=== PATIENT | male | born 1965 | race Caucasian/White ===

== ENCOUNTER 2022-10-28 23:34 | Inpatient (IN) ==
[2022-10-28] MEDS ORDERED: SODIUM CHLORIDE 0.9% 1000ML 1,000 ML IV SCH (23:45)
[2022-10-28] MEDS ORDERED: ALBUT/IPRATROP 3MG/0.5MG NEB 3 ML VIAL NEB STA (23:49)
[2022-10-28] MEDS ORDERED: ACETAMINOPHEN 1,000 MG/100 ML VIAL IV STA (23:49)
[2022-10-29] MEDS ORDERED: ALBUT/IPRATROP 3MG/0.5MG NEB 3 ML VIAL NEB STA (00:01)
[2022-10-29] MEDS ORDERED: SODIUM CHLORIDE 0.9% 1000ML 1,000 ML IV ONE (00:02)
--- NOTE | 2022-10-29 00:14 | Emergency Department Note ---
History of Present Illness General Chief complaint: Shortness of Breath/Dyspnea Stated complaint: SEVERE BACK PAIN,SOB,KIDNEY PAIN Time Seen by Provider: 10/28/22 23:39 History of Present Illness This 57-year-old male with a history of hypertension presents to the ER complaining of severe shortness of breath with right flank pain and right scapular pain since last night. Patient states his breathing got much worse and he can barely ambulate. Patient denies prior history of breathing issues. Patient denies chest pain, abdominal pain, vomiting, diarrhea. He has had a cough and a low-grade fever. He had a colonoscopy on Thursday. No complications per patient. Home Medications Medication Instructions Recorded Confirmed Type acetaminophen 500 mg tablet 1,000 mg PO DIRECTED PRN Pain 10/29/22 10/29/22 History (Tylenol Extra Strength) hydrochlorothiazide 12.5 mg tablet 12.5 mg PO DAILY 10/29/22 10/29/22 History losartan 100 mg tablet 100 mg PO DAILY 10/29/22 10/29/22 History Allergies Allergy/AdvReac Type Severity Reaction Status Date / Time No Known Allergies Allergy Verified 10/29/22 00:19 Past Med/Surg History Social History Smoking Status: Never smoker Feels Safe at Home: Yes Review of Systems A total of 10 systems reviewed and were otherwise negative Physical Exam Vital Signs Vital Signs - 24 hr 10/28/22 23:39 10/29/22 00:08 10/29/22 00:12 Temperature 37.9 C H Temperature Source Temporal Artery Scan Pulse Rate 107 H 107 H Pulse Rate [Apical] Respiratory Rate 30 H 26 H Respiratory Effort / Characteristics Respiratory Depth Respiratory Pattern Blood Pressure 166/89 H Blood Pressure [Right Arm] Blood Pressure Mean 114 Blood Pressure Mean [Right Arm] Blood Pressure Position [Right Arm] Pulse Oximetry 95 94 94 Oxygen Delivery Method Room Air Room Air Room Air Sepsis Recent Fever Within 48 Hours No Sepsis New/Unexplained Change in Mental Status No Sepsis Action Taken by Nursing No Action Required 10/29/22 00:13 10/29/22 00:14 10/29/22 01:06 Temperature Temperature Source Pulse Rate Pulse Rate [Apical] 107 H 100 H Respiratory Rate 26 H 22 Respiratory Effort / Characteristics Spontaneous Labored Short of Breath Non-Labored Spontaneous Non-Labored Spontaneous Respiratory Depth Deep Normal Normal Respiratory Pattern Tachypnea Blood Pressure Blood Pressure [Right Arm] 149/98 H 152/79 H Blood Pressure Mean Blood Pressure Mean [Right Arm] 115 103 Blood Pressure Position [Right Arm] Sitting Sitting Pulse Oximetry 94 94 Oxygen Delivery Method Room Air Room Air Room Air Sepsis Recent Fever Within 48 Hours Sepsis New/Unexplained Change in Mental Status Sepsis Action Taken by Nursing VITALS: Vitals are noted on the nurse's note and reviewed by myself. Vital signs tachypneic tachycardic febrile. GENERAL: White male working to breathe unable to speak in full sentences, in acute distress, well-developed well-nourished. SKIN: The skin was without rashes, erythema, edema, or bruising. There is no tenting of the skin. Capillary reflex less than 2 seconds. HEAD: Normocephalic atraumatic. EARS: External auditory canals clear, tympanic membranes pearly hannah without erythema or effusion bilaterally. EYES: Pupils equal round and reactive to light and accommodation. Conjunctivae without injection, sclerae without icterus. Extraocular movements intact. NOSE: Patent, turbinates without inflammation or discharge. No sinus tenderness. MOUTH: Mucous membranes moist. Pharynx without erythema or exudate. Uvula midline. Airway patent. Tongue does not deviate. NECK: Supple without nuchal rigidity. No lymphadenopathy. No thyromegaly. Cervical spine is nontender. No JVD. HEART: Regular rate and rhythm LUNGS: Mild diffuse and expiratory wheezes,no retractions or accessory muscle use. ABDOMEN: Positive bowel sounds x 4. Normal tympanic percussion. Soft, nontender, without masses or organomegaly. Santana sign negative. No guarding or rebound tenderness. No CVA tenderness MUSCULOSKELETAL: No muscle atrophy, erythema, or edema noted. NEURO: Patient was alert and oriented to person place and time. Normal sensation to light and sharp touch. No focal neurological deficits. Course Administered Medications Discontinued Medications Albuterol (Albut/Ipratrop 3mg/0.5mg Neb 3 Ml Vial) 3 ml NEB NOW STA; Protocol Stop: 10/28/22 23:50 Last Admin: 10/29/22 00:01 Dose: 3 ml Documented By: JONG Albuterol (Albut/Ipratrop 3mg/0.5mg Neb 3 Ml Vial) 3 ml NEB NOW STA; Protocol Stop: 10/29/22 00:02 Last Admin: 10/29/22 01:07 Dose: Not Given Documented By: STEPHON Acetaminophen (Ofirmev) 1,000 mg in 100 mls @ 400 mls/hr IV NOW STA Stop: 10/29/22 00:03 Last Infusion: 10/29/22 01:11 Dose: 0 mls/hr Documented By: Admin: 10/29/22 00:01 Dose: 400 mls/hr Documented By: JONG Sodium Chloride (Nss 1000ml) 1,000 mls @ 999 mls/hr IV .Q1H1M STEVEN Stop: 10/29/22 00:45 Last Infusion: 10/29/22 01:41 Dose: 0 mls/hr Documented By: Admin: 10/29/22 00:01 Dose: 999 mls/hr Documented By: JONG Sodium Chloride (Nss 1000ml) 1,000 mls @ 999 mls/hr IV .Q1H1M ONE Stop: 10/29/22 01:02 Last Admin: 10/29/22 01:07 Dose: 999 mls/hr Documented By: STEPHON Piperacillin Sod/Tazobactam Sod (Zosyn) 4.5 gm in 120 mls @ 240 mls/hr IV NOW ONE Stop: 10/29/22 01:39 Last Admin: 10/29/22 01:17 Dose: 240 mls/hr Documented By: STEPHON Ioversol (Optiray 320 125ml) 125 ml IV ONCE ONE Stop: 10/29/22 01:01 Last Admin: 10/29/22 01:00 Dose: 115 ml Documented By: ULICES Critical Care Time Critical Care Time: Yes Total Critical Care Time: 35 I have personally spent 35 minutes of critical care time in the direct management of this patient. This includes bedside care, interpretation of diagnostic studies, and testing, discussion with consultants, patient, and fam lloyd members, and other required patient management activities. This 35 minutes is in excess of all separately billable procedures. Medical Decision Making Medical Records Attestation: I reviewed the patient's medical records. Home Medications Current Medication List: was personally reviewed by me Laboratory Data Attestation: I reviewed the patient's lab results. 10/28/22 23:57 10/28/22 23:57 Lab Results 06/27/23 06/27/23 06/27/23 Range/Units 23:57 23:57 23:57 WBC 11.57 H (4.8-10.8) K/ul RBC 4.89 (4.70-6.10) M/uL Hgb 14.8 (14.0-18.0) g/dl POC Hgb (14.0-18.0) g/dl Hct 42.9 (42.0-52.0) % POC Hct (42-52) % MCV 87.7 (80.0-100.0) fL MCH 30.3 (25.0-34.0) pg MCHC 34.5 (32.0-36.0) g/dL RDW Std Deviation 40.0 (36.4-46.3) fL RDW Coeff of Jhon 12.5 (11.5-14.5) % Plt Count 204 (130-400) K/uL MPV 9.7 (9.4-12.4) fL Immature Gran % (Auto) 0.4 % Neut % (Auto) 75.8 % Lymph % (Auto) 13.7 % Louisa % (Auto) 8.0 % Eos % (Auto) 1.6 % Baso % (Auto) 0.5 % Neut # (Auto) 8.77 H (1.40-6.50) K/uL Lymph # (Auto) 1.59 (1.2-3.4) K/uL Louisa # (Auto) 0.92 H (0.11-0.59) K/uL Eos # (Auto) 0.18 (0-0.50) K/uL Baso # (Auto) 0.06 (0-0.2) K/uL Immature Gran # (Auto) 0.05 (0.01-0.20) K/uL VBG pH (7.36-7.41) VBG pCO2 (38-50) mmHg VBG pO2 mmHg VBG HCO3 mmol/L VBG O2 Saturation % VBG Base Excess mEq/L POC Sodium (135-144) mmol/L Sodium 134 L (136-145) mmol/L POC Potassium (3.3-5.0) mmol/L Potassium 4.2 (3.5-5.1) mmol/L POC Chloride (101-112) mmol/L Chloride 102 (98-107) mmol/L Carbon Dioxide 24 (21-32) mmol/L POC Total CO2 (24-31) mmol/L Anion Gap 8 (3-11) POC Anion Gap (16-25) mmol/L POC BUN (7-18) mg/dl BUN 15 (6-23) mg/dl Creatinine 1.06 (0.6-1.4) mg/dl POC Creatinine (0.6-1.3) mg/dl Est Cr Clr Drug Dosing 103.8 ml/min Est GFR ( Amer) 89.9 ml/min Est GFR (Non-Af Amer) 77.5 ml/min BUN/Creatinine Ratio 14.2 (10-20) Glucose 124 H (70-99(Fasting)) mg/dl POC Glucose (other) (70-99) mg/dl Lactate (0.4-2.0) mmol/L Calcium 9.5 (8.6-10.3) mg/dl POC Ioniz Calcium Joi (1.12-1.32) mmol/l Magnesium 2.0 (1.7-2.4) mg/dl Total Bilirubin 0.5 (0.2-1.0) mg/dl Direct Bilirubin 0.1 (0-0.2) mg/dl AST 15 (13-39) U/L ALT 16 (7-52) U/L Alkaline Phosphatase 93 (34-104) U/L Troponin I High Sens 4.8 (0-20) pg/ml Total Protein 8.6 H (6.0-8.3) gm/dl Albumin 4.5 (3.4-5.0) gm/dl Procalcitonin 0.47 (0-0.5) ng/ml Adenovirus (PCR) (NotDetected) B. pertussis DNA (PCR) (NotDetected) B.parapertussis DNA PCR (NotDetected) C. pneumoniae DNA (PCR) (NotDetected) Coronavirus OC43 (PCR) (NotDetected) Coronavirus HKU1 (PCR) (NotDetected) Coronavirus 229E (PCR) (NotDetected) SARS-CoV-2 (PCR) (NotDetected) Coronavirus NL63 (PCR) (NotDetected) Human Metapneumovir PCR (NotDetected) Influenza Type A (PCR) (NotDetected) Influenza Type B (PCR) (NotDetected) M. pneumoniae (PCR) (NotDetected) Parainfluenza 1 (PCR) (NotDetected) Parainfluenza 2 (PCR) (NotDetected) Parainfluenza 3 (PCR) (NotDetected) Parainfluenza 4 (PCR) (NotDetected) RSV (PCR) (NotDetected) Entero/Rhino (PCR) (NotDetected) 10/29/22 10/29/22 10/29/22 Range/Units 00:03 00:09 01:05 WBC (4.8-10.8) K/ul RBC (4.70-6.10) M/uL Hgb (14.0-18.0) g/dl POC Hgb 15.6 (14.0-18.0) g/dl Hct (42.0-52.0) % POC Hct 46 (42-52) % MCV (80.0-100.0) fL MCH (25.0-34.0) pg MCHC (32.0-36.0) g/dL RDW Std Deviation (36.4-46.3) fL RDW Coeff of John (11.5-14.5) % Plt Count (130-400) K/uL MPV (9.4-12.4) fL Immature Gran % (Auto) % Neut % (Auto) % Lymph % (Auto) % Louisa % (Auto) % Eos % (Auto) % Baso % (Auto) % Neut # (Auto) (1.40-6.50) K/uL Lymph # (Auto) (1.2-3.4) K/uL Louisa # (Auto) (0.11-0.59) K/uL Eos # (Auto) (0-0.50) K/uL Baso # (Auto) (0-0.2) K/uL Immature Gran # (Auto) (0.01-0.20) K/uL VBG pH (7.36-7.41) VBG pCO2 (38-50) mmHg VBG pO2 mmHg VBG HCO3 mmol/L VBG O2 Saturation % VBG Base Excess mEq/L POC Sodium 137 (135-144) mmol/L Sodium (136-145) mmol/L POC Potassium 4.2 (3.3-5.0) mmol/L Potassium (3.5-5.1) mmol/L POC Chloride 102 (101-112) mmol/L Chloride (98-107) mmol/L Carbon Dioxide (21-32) mmol/L POC Total CO2 24 (24-31) mmol/L Anion Gap (3-11) POC Anion Gap 17.0 (16-25) mmol/L POC BUN 13 (7-18) mg/dl BUN (6-23) mg/dl Creatinine (0.6-1.4) mg/dl POC Creatinine 1.0 (0.6-1.3) mg/dl Est Cr Clr Drug Dosing ml/min Est GFR ( Amer) ml/min Est GFR (Non-Af Amer) ml/min BUN/Creatinine Ratio (10-20) Glucose (70-99(Fasting)) mg/dl POC Glucose (other) 125 H (70-99) mg/dl Lactate 1.1 (0.4-2.0) mmol/L Calcium (8.6-10.3) mg/dl POC Ioniz Calcium Joi 1.13 (1.12-1.32) mmol/l Magnesium (1.7-2.4) mg/dl Total Bilirubin (0.2-1.0) mg/dl Direct Bilirubin (0-0.2) mg/dl AST (13-39) U/L ALT (7-52) U/L Alkaline Phosphatase (34-104) U/L Troponin I High Sens (0-20) pg/ml Total Protein (6.0-8.3) gm/dl Albumin (3.4-5.0) gm/dl Procalcitonin (0-0.5) ng/ml Adenovirus (PCR) Not Detected (NotDetected) B. pertussis DNA (PCR) Not Detected (NotDetected) B.parapertussis DNA PCR Not Detected (NotDetected) C. pneumoniae DNA (PCR) Not Detected (NotDetected) Coronavirus OC43 (PCR) Not Detected (NotDetected) Coronavirus HKU1 (PCR) Not Detected (NotDetected) Coronavirus 229E (PCR) Not Detected (NotDetected) SARS-CoV-2 (PCR) Not Detected (NotDetected) Coronavirus NL63 (PCR) Not Detected (NotDetected) Human Metapneumovir PCR Not Detected (NotDetected) Influenza Type A (PCR) Not Detected (NotDetected) Influenza Type B (PCR) Not Detected (NotDetected) M. pneumoniae (PCR) Not Detected (NotDetected) Parainfluenza 1 (PCR) Not Detected (NotDetected) Parainfluenza 2 (PCR) Not Detected (NotDetected) Parainfluenza 3 (PCR) Not Detected (NotDetected) Parainfluenza 4 (PCR) Not Detected (NotDetected) RSV (PCR) Not Detected (NotDetected) Entero/Rhino (PCR) Not Detected (NotDetected) 10/29/22 Range/Units 01:05 WBC (4.8-10.8) K/ul RBC (4.70-6.10) M/uL Hgb (14.0-18.0) g/dl POC Hgb (14.0-18.0) g/dl Hct (42.0-52.0) % POC Hct (42-52) % MCV (80.0-100.0) fL MCH (25.0-34.0) pg MCHC (32.0-36.0) g/dL RDW Std Deviation (36.4-46.3) fL RDW Coeff of John (11.5-14.5) % Plt Count (130-400) K/uL MPV (9.4-12.4) fL Immature Gran % (Auto) % Neut % (Auto) % Lymph % (Auto) % Louisa % (Auto) % Eos % (Auto) % Baso % (Auto) % Neut # (Auto) (1.40-6.50) K/uL Lymph # (Auto) (1.2-3.4) K/uL Louisa # (Auto) (0.11-0.59) K/uL Eos # (Auto) (0-0.50) K/uL Baso # (Auto) (0-0.2) K/uL Immature Gran # (Auto) (0.01-0.20) K/uL VBG pH 7.45 H (7.36-7.41) VBG pCO2 39 (38-50) mmHg VBG pO2 48 mmHg VBG HCO3 27 mmol/L VBG O2 Saturation 74.1 % VBG Base Excess 3.0 mEq/L POC Sodium (135-144) mmol/L Sodium (136-145) mmol/L POC Potassium (3.3-5.0) mmol/L Potassium (3.5-5.1) mmol/L POC Chloride (101-112) mmol/L Chloride (98-107) mmol/L Carbon Dioxide (21-32) mmol/L POC Total CO2 (24-31) mmol/L Anion Gap (3-11) POC Anion Gap (16-25) mmol/L POC BUN (7-18) mg/dl BUN (6-23) mg/dl Creatinine (0.6-1.4) mg/dl POC Creatinine (0.6-1.3) mg/dl Est Cr Clr Drug Dosing ml/min Est GFR ( Amer) ml/min Est GFR (Non-Af Amer) ml/min BUN/Creatinine Ratio (10-20) Glucose (70-99(Fasting)) mg/dl POC Glucose (other) (70-99) mg/dl Lactate (0.4-2.0) mmol/L Calcium (8.6-10.3) mg/dl POC Ioniz Calcium Joi (1.12-1.32) mmol/l Magnesium (1.7-2.4) mg/dl Total Bilirubin (0.2-1.0) mg/dl Direct Bilirubin (0-0.2) mg/dl AST (13-39) U/L ALT (7-52) U/L Alkaline Phosphatase (34-104) U/L Troponin I High Sens (0-20) pg/ml Total Protein (6.0-8.3) gm/dl Albumin (3.4-5.0) gm/dl Procalcitonin (0-0.5) ng/ml Adenovirus (PCR) (NotDetected) B. pertussis DNA (PCR) (NotDetected) B.parapertussis DNA PCR (NotDetected) C. pneumoniae DNA (PCR) (NotDetected) Coronavirus OC43 (PCR) (NotDetected) Coronavirus HKU1 (PCR) (NotDetected) Coronavirus 229E (PCR) (NotDetected) SARS-CoV-2 (PCR) (NotDetected) Coronavirus NL63 (PCR) (NotDetected) Human Metapneumovir PCR (NotDetected) Influenza Type A (PCR) (NotDetected) Influenza Type B (PCR) (NotDetected) M. pneumoniae (PCR) (NotDetected) Parainfluenza 1 (PCR) (NotDetected) Parainfluenza 2 (PCR) (NotDetected) Parainfluenza 3 (PCR) (NotDetected) Parainfluenza 4 (PCR) (NotDetected) RSV (PCR) (NotDetected) Entero/Rhino (PCR) (NotDetected) Imaging Data Attestation: I personally reviewed and interpreted this imaging study as follows: Radiologist's Impression: Abdomen/Pelvis CT 10/29/22 00:01 Exam(s): CT ABDOMEN + PELVIS With Contrast IV Amt: 115 ML OPTIRAY 320 EXAM: CT Abdomen and Pelvis With Intravenous Contrast CLINICAL HISTORY: Reason for exam: right flank pain. TECHNIQUE: Axial computed tomography images of the abdomen and pelvis with intravenous contrast. CTDI is 28.14 mGy and DLP is 873.63 mGy-cm. Automated exposure control was utilized for the study. A dose lowering technique was utilized adhering to the principles of ALARA. CONTRAST: Patient received 115 ML OPTIRAY 320 of IV contrast COMPARISON: No relevant prior studies available. FINDINGS: Lung bases: Bronchitis with pneumonitis and small consolidation at the right lung base with tiny pleural effusion. ABDOMEN: Liver: Hepatic steatosis. No mass. Gallbladder and bile ducts: Unremarkable. No calcified stones. No ductal dilation. Pancreas: Unremarkable. No mass. No ductal dilation. Spleen: Unremarkable. No splenomegaly. Adrenals: Unremarkable. No mass. Kidneys and ureters: Left renal cyst. No solid mass. No hydronephrosis. Stomach and bowel: Unremarkable. No obstruction. No mucosal thickening. PELVIS: Appendix: No findings to suggest acute appendicitis. Bladder: Unremarkable. No mass. Reproductive: Unremarkable as visualized. ABDOMEN and PELVIS: Intraperitoneal space: Unremarkable. No free air. No significant fluid collection. Bones/joints: Moderate disc degeneration at L1-2, L2-3, L4-5 and L5-S1. No acute fracture. No dislocation. Soft tissues: Unremarkable. Vasculature: Unremarkable. No abdominal aortic aneurysm. Lymph nodes: Unremarkable. No enlarged lymph nodes. IMPRESSION: No evidence of acute intra-abdominal pathology. Bronchitis with pneumonitis and small consolidation at the right lung base with tiny pleural effusion. Electronically signed by: Shena Logan MD 10/29/22 01:33 AM Chest CTA 10/29/22 00:01 CR Exam(s): CTA CHEST IV Amt: 115 ML OPTIRAY 320 EXAM: CT Angiography Chest With Intravenous Contrast CLINICAL HISTORY: Reason for exam: PE. TECHNIQUE: Axial computed tomographic angiography images of the chest with intravenous contrast. CTDI is 27.54 mGy and DLP is 1591.62 mGy-cm. Automated exposure control was utilized for the study. A dose lowering technique was utilized adhering to the principles of ALARA. MIP reconstructed images were created and reviewed. COMPARISON: No relevant prior studies available. FINDINGS: Pulmonary arteries: There is an obstructive pulmonary embolus in the right lower lobe segmental pulmonary artery. Findings concerning for a obstructive pulmonary mass in the left lower lobe subsegmental pulmonary artery. Aorta: No acute findings. No thoracic aortic aneurysm. Lungs: Bronchitis with pneumonitis and small consolidation in the right middle lobe and right lower lobe. No mass. Pleural space: Tiny right pleural effusion. No pneumothorax. Heart: Mild calcified atherosclerotic disease of the coronary arteries.. No cardiomegaly. No significant pericardial effusion. No evidence of RV dysfunction. Bones/joints: No acute fracture. No dislocation. Soft tissues: Hepatic steatosis. Lymph nodes: Prominent mediastinal and hilar lymph nodes. IMPRESSION: Obstructive pulmonary embolus in the right lower lobe segmental pulmonary artery with possible obstructive embolus in the left lower lobe subsegmental pulmonary artery. No evidence of right heart strain. Findings concerning for bronchitis with small consolidations in the right middle lobe and right lower lobe with tiny right pleural effusion. Prominent mediastinal and hilar lymph nodes. Communications: Call Doctor Above results Electronically signed by: Shena Logan MD 10/29/22 01:37 AM MDM Narrative Prior records/ancillary studies reviewed. Triage Nursing notes reviewed. Additional history obtained from the family. The patient's history was concerning for respiratory difficulties. Differential diagnosis: Etiologies such as infections, reactive airway disease, pneumonia, pneumothorax, COPD, CHF, cardiac ischemia, pulmonary embolism, musculoskeletal, gastrointestinal, as well as others were entertained. Physical examination: As above. ER treatment provided: An order was placed for continuous cardiac monitoring. The monitor shows a rate of 60-1 50 with a sinus rhythm per my interpretation. Limited Point of Care FAST Ultrasound performed by me: Indication: Rule out pneumothorax Findings: Limited cardiac ultrasonography via subxiphoid and parasternal long view showed cardiac wall motion activity, no pericardial fluid, no tamponade. Limited chest ultrasound revealed bilateral lung sliding. Limited abdominal ultrasound revealed no free fluid within Morrisons pouch, splenorenal space, or the pouch of Dwayne. Impression: Negative FAST exam. IV was immediately placed, i-STAT was ordered, patient was given a nebulizer fluids and Tylenol Patient was given Zosyn for pneumonia seen on imaging. He was started on heparin without bolus after discussion with the admitting team. On reassessment the patient felt better. Diagnostic interpretation by me: The electrocardiogram was ordered for SOB. ECG: Normal sinus, normal intervals, no acute ST-T wave changes. Impression s inus tachycardia independently interpreted by myself I think arrhythmia is unlikely. EKG shows normal sinus rhythm with no interval abnormalities such as QT prolongation or WPW. There are no findings to suggest Brugada syndrome. Cardiac monitoring in the emergency department reveals no tachycardic or bradycardic dysrhythmia. Hypertrophic cardiomyopathy was considered but there are no clear historical elements pointing toward this. EKG is not suggestive. The QRS voltage is not extremely large and there are no suggestive Q waves. The labs Independently Interpreted by myself revealed mild leukocytosis, negative lactic. Negative BioFire Blood cultures pending Negative troponin Imaging studies: Chest x-ray with possible right lower lobe pneumonia per my independent interpretation CTA and CT of the abdomen pelvis concerning for pneumonia and PEs per my independent interpretation. Consultation: A consultation was placed with the hospitalist. The case was discussed and diagnostics were reviewed. The patient was evaluated in the ER for further treatment. This appears to be consistent with pneumonia with PEs.. Labs and diagnostics were independently interpreted by myself. Patient started antibiotics. He was started on heparin. Discussion with the hospitalist over the heparin dosing and recommends heparin without bolus. Patient was reassessed multiple times. He did improve. He is agreeable treatment plan of admission. By the evaluation outlined above emergent etiologies such as CHF, cardiac ischemia, reactive airway disease, pneumothorax, musculoskeletal, as well as others were deemed relatively unlikely. The pt informed about the findings as listed above. All questions were answered and pleased with the treatment. The chart was completed utilizing Dragon Speech voice recognition software. Grammatical errors, random word insertions, pronoun errors, and incomplete sentences are an occassional consequence of this system due to software limi tations, ambient noise, and hardware issues. Any formal questions or concerns about the content, text, or information contained within the body of this dictation should be directly addressed to the physician physician assistant psychiatry for clarification. Impression & Plan Pulmonary embolism, CAP (community acquired pneumonia) Discharge Plan Visit Data Chief Complaint: Shortness of Breath/Dyspnea Stated Complaint: SEVERE BACK PAIN,SOB,KIDNEY PAIN ED Provider: Luis So ED Midlevel Provider: Priyanka Escamilla Discharge Problem: Pulmonary embolism, CAP (community acquired pneumonia) Patient Disposition: Admitted As Inpatient Condition: Fair Forms Stand Alone Forms: [facility] Prescriptions Prescriptions: No Action acetaminophen [Tylenol Extra Strength] 500 mg Tablet 1,000 mg PO DIRECTED PRN (Reason: Pain) losartan 100 mg Tablet 100 mg PO DAILY hydrochlorothiazide 12.5 mg Tablet 12.5 mg PO DAILY Referrals Referrals: PCP,NO [Physician] - Pulmonary embolism Qualifiers: Pulmonary embolism type: unspecified Chronicity: acute Acute cor pulmonale presence: without acute cor pulmonale Qualified Code(s): I26.99 - Other pulmonary embolism without acute cor pulmonale
[2022-10-29 00:16] LABS: iSTAT Hemoglobin 15.6 g/dl (14.0-18.0); iSTAT Ionized Calcium 1.13 mmol/l (1.12-1.32); iSTAT Potassium 4.2 mmol/L (3.3-5.0)
[2022-10-29 00:18] LABS: Basophils # (auto) 0.06 K/uL (0-0.2); Basophils % (auto) 0.5 %; Eosinophils # (auto) 0.18 K/uL (0-0.50); Eosinophils % (auto) 1.6 %; Hematocrit (blood only) 42.9 % (42.0-52.0); Hemoglobin 14.8 g/dl (14.0-18.0); Immature Granulocytes # (auto) 0.05 K/uL (0.01-0.20); Immature Granulocytes % (auto) 0.4 %; Lymphocytes # (auto) 1.59 K/uL (1.2-3.4); Lymphocytes % (auto) 13.7 %; Mean Corpuscular Hemoglobin 30.3 pg (25.0-34.0); Mean Corpuscular Hgb Conc 34.5 g/dL (32.0-36.0); Mean Corpuscular Volume 87.7 fL (80.0-100.0); Mean Platelet Volume 9.7 fL (9.4-12.4); Monocytes # (auto) 0.92 K/uL (0.11-0.59); Neutrophils # (auto) 8.77 K/uL (1.40-6.50); Neutrophils % (auto) 75.8 %; Platelet Count 204 K/uL (130-400); RDW Coefficient of Variation 12.5 % (11.5-14.5); Red Blood Count 4.89 M/uL (4.70-6.10); White Blood Count 11.57 K/ul (4.8-10.8)
[2022-10-29 00:34] LABS: Albumin Level 4.5 gm/dl (3.4-5.0); BUN Creatinine Ratio 14.2 (10-20); Bilirubin Direct 0.1 mg/dl (0-0.2); Bilirubin,Total 0.5 mg/dl (0.2-1.0); Calcium 9.5 mg/dl (8.6-10.3); Creatinine Clr Calc Pharmacy 103.8 ml/min; Est GFR (African American) 89.9 ml/min; Est GFR (Non-African American) 77.5 ml/min; Potassium 4.2 mmol/L (3.5-5.1); Total Protein 8.6 gm/dl (6.0-8.3)
[2022-10-29 00:38] LABS: Troponin I High Sensitivity 4.8 pg/ml (0-20)
[2022-10-29] MEDS ORDERED: OPTIRAY 320 125ml IV ONE (01:00)
[2022-10-29 01:10] LABS: HCO3 VBG 27 mmol/L; Oxygen Saturation VBG 74.1 %; PCO2 VBG 39 mmHg (38-50); PO2 VBG 48 mmHg; pH VBG 7.45 (7.36-7.41)
[2022-10-29] MEDS ORDERED: PIPERACILLIN/TAZOBACTAM 4.5 GM/120 ML BAG IV ONE (01:10)
[2022-10-29 01:18] LABS: Adenovirus PCR Not Detected (NotDetected); Bordetella parapertussis PCR Not Detected (NotDetected); Bordetella pertussis PCR Not Detected (NotDetected); Chlamydia pneumoniae PCR Not Detected (NotDetected); Coronavirus 229E PCR Not Detected (NotDetected); Coronavirus CoV-2 (COVID19)PCR Not Detected (NotDetected); Coronavirus HKU1 PCR Not Detected (NotDetected); Coronavirus NL63 PCR Not Detected (NotDetected); Coronavirus OC43PCR Not Detected (NotDetected); Human Metapneumovirus PCR Not Detected (NotDetected); Influenza A PCR Not Detected (NotDetected); Influenza B PCR Not Detected (NotDetected); Mycoplasma pneumoniae PCR Not Detected (NotDetected); Parainfluenza Virus 1 PCR Not Detected (NotDetected); Parainfluenza Virus 2 PCR Not Detected (NotDetected); Parainfluenza Virus 3 PCR Not Detected (NotDetected); Parainfluenza Virus 4 PCR Not Detected (NotDetected); Respiratory Syncytial VirusPCR Not Detected (NotDetected); Rhinovirus/Enterovirus PCR Not Detected (NotDetected)
[2022-10-29] MEDS ORDERED: LORazepam 2 MG/1 ML VIAL IV STA (01:19)
--- NOTE | 2022-10-29 01:34 | CT Scan Report ---
Exam(s): CT ABDOMEN + PELVIS With Contrast IV Amt: 115 ML OPTIRAY 320 EXAM: CT Abdomen and Pelvis With Intravenous Contrast CLINICAL HISTORY: Reason for exam: right flank pain. TECHNIQUE: Axial computed tomography images of the abdomen and pelvis with intravenous contrast. CTDI is 28.14 mGy and DLP is 873.63 mGy-cm. Automated exposure control was utilized for the study. A dose lowering technique was utilized adhering to the principles of ALARA. CONTRAST: Patient received 115 ML OPTIRAY 320 of IV contrast COMPARISON: No relevant prior studies available. FINDINGS: Lung bases: Bronchitis with pneumonitis and small consolidation at the right lung base with tiny pleural effusion. ABDOMEN: Liver: Hepatic steatosis. No mass. Gallbladder and bile ducts: Unremarkable. No calcified stones. No ductal dilation. Pancreas: Unremarkable. No mass. No ductal dilation. Spleen: Unremarkable. No splenomegaly. Adrenals: Unremarkable. No mass. Kidneys and ureters: Left renal cyst. No solid mass. No hydronephrosis. Stomach and bowel: Unremarkable. No obstruction. No mucosal thickening. PELVIS: Appendix: No findings to suggest acute appendicitis. Bladder: Unremarkable. No mass. Reproductive: Unremarkable as visualized. ABDOMEN and PELVIS: Intraperitoneal space: Unremarkable. No free air. No significant fluid collection. Bones/joints: Moderate disc degeneration at L1-2, L2-3, L4-5 and L5-S1. No acute fracture. No dislocation. Soft tissues: Unremarkable. Vasculature: Unremarkable. No abdominal aortic aneurysm. Lymph nodes: Unremarkable. No enlarged lymph nodes. IMPRESSION: No evidence of acute intra-abdominal pathology. Bronchitis with pneumonitis and small consolidation at the right lung base with tiny pleural effusion. Electronically signed by: Shena Logan MD 10/29/22 01:33 AM
--- NOTE | 2022-10-29 01:38 | CT Scan Report ---
Exam(s): CTA CHEST IV Amt: 115 ML OPTIRAY 320 EXAM: CT Angiography Chest With Intravenous Contrast CLINICAL HISTORY: Reason for exam: PE. TECHNIQUE: Axial computed tomographic angiography images of the chest with intravenous contrast. CTDI is 27.54 mGy and DLP is 1591.62 mGy-cm. Automated exposure control was utilized for the study. A dose lowering technique was utilized adhering to the principles of ALARA. MIP reconstructed images were created and reviewed. COMPARISON: No relevant prior studies available. FINDINGS: Pulmonary arteries: There is an obstructive pulmonary embolus in the right lower lobe segmental pulmonary artery. Findings concerning for a obstructive pulmonary mass in the left lower lobe subsegmental pulmonary artery. Aorta: No acute findings. No thoracic aortic aneurysm. Lungs: Bronchitis with pneumonitis and small consolidation in the right middle lobe and right lower lobe. No mass. Pleural space: Tiny right pleural effusion. No pneumothorax. Heart: Mild calcified atherosclerotic disease of the coronary arteries.. No cardiomegaly. No significant pericardial effusion. No evidence of RV dysfunction. Bones/joints: No acute fracture. No dislocation. Soft tissues: Hepatic steatosis. Lymph nodes: Prominent mediastinal and hilar lymph nodes. IMPRESSION: Obstructive pulmonary embolus in the right lower lobe segmental pulmonary artery with possible obstructive embolus in the left lower lobe subsegmental pulmonary artery. No evidence of right heart strain. Findings concerning for bronchitis with small consolidations in the right middle lobe and right lower lobe with tiny right pleural effusion. Prominent mediastinal and hilar lymph nodes. Communications: Call Doctor Above results Electronically signed by: Shena Logan MD 10/29/22 01:37 AM
[2022-10-29] MEDS ORDERED: Heparin IV Adult Wt-Based Standard *NO* Bolus Protocol IV ONE (01:42)
[2022-10-29 02:05] LABS: Partial Thromboplastin Time 27.8 Seconds (21.0-31.0); Prothrombin Time 10.8 Seconds (9.0-12.0)
[2022-10-29 02:29] LABS: Appearance Urine Clear (Clear); Bilirubin Urine Negative (Negative); Blood Urine Negative (Negative); Color Urine Yellow; Glucose Urine UA Negative (Negative); Ketones Urine Negative (Negative); Leukocyte Esterase Urine Negative (Negative); Nitrite Urine Negative (Negative); Protein Urine Negative (Negative); Specific Gravity Urine 1.037 (1.000-1.030); Urobilinogen Urine Negative (Negative); pH Urine 6.5 (4.5-7.5)
[2022-10-29] MEDS: HEPARIN SODIUM/DEXTROSE 25,000 UNITS/500 ML BAG IV SCH ×2 (02:46→17:00)
[2022-10-29] MEDS ORDERED: DOXYCYCLINE HYCLATE 100 MG in DEXTROSE 5% 100 ML IV STA (03:56)
--- NOTE | 2022-10-29 03:57 | History & Physical Report ---
Date of Service October 29, 2022 Assessment & Plan (1) Pulmonary embolism: Plan: Unprovoked initial event Possible hypercoagulable state Patient with multiple family members with history of blood clots (1 brother with factor V Leiden mutation as per her account) Rule out LE clot as source Sepsis secondary to community-acquired pneumonia, patient presenting with atypical symptoms given absence of prominent cough symptoms hypertension, elevated secondary to discomfort and illness prediabetes, hemoglobin A1c of 6.2 last June 2022 Medical telemetry IV heparin Hypercoagulable work-up as ordered by ER provider prior to initiation of IV heparin LE venous Dopplers rule out DVT Defer discussion regarding home anticoagulation between patient and AM provider. CS, Doxycycline Clonidine 1 dose now for uncontrolled BP Analgesia, Lidoderm patch trial for pleurisy DVT prophylaxis. IV heparin Full code Text document was generated using [employer] ([employer] voice recognition software. It may contain grammatical or spelling errors. Kindly contact undersigned for clarification of any documentation item in question. History of Present Illness Chief Complaint: Right-sided back pain, shortness of breath Primary Care Provider: Darlene Barriga MD History obtained from patient and records. Medical history significant for hypertension, chronic back pain, prediabetes. Patient underwent outpatient follow-up colonoscopy 4 days ago. Unremarkable postprocedure course. Yesterday, patient noted achy right flank pain with shortness of breath symptoms. No cough, no abdominal pain. Fever and chills. Increased weakness. Zosyn administered at the ER for sepsis. IV heparin initiated for pulmonary embolism on CT imaging. No prior history of blood clots. Multiple family members with blood clot history. 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 Allergies Allergy/AdvReac Type Severity Reaction Status Date / Time No Known Allergies Allergy Verified 10/29/22 00:19 Home Medications Medication Instructions Recorded Confirmed Type acetaminophen 500 mg tablet 1,000 mg PO DIRECTED PRN Pain 10/29/22 10/29/22 History (Tylenol Extra Strength) hydrochlorothiazide 12.5 mg tablet 12.5 mg PO DAILY 10/29/22 10/29/22 History losartan 100 mg tablet 100 mg PO DAILY 10/29/22 10/29/22 History Past Med/Surg History Social History Smoking Status: Never smoker Hx Alcohol Use: No Hx Substance Use: No 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: No Beliefs That Will Affect Care: None Current Living Situation: Spouse Other Information That Helps Us Care for You: No Feels Safe at Home: Yes Safety Concerns: Feels Safe At This Time Assistive Devices: None Review of Systems Review of Systems: As per HPI, all other systems reviewed and negative Physical Exam Physical Exam: GENERAL: Slightly uncomfortable, pleasant, obese, no respiratory distress SKIN: Normal color, warm HEENT: [place] palpebral conjunctivae, no ptosis, dry buccal mucosa NECK : Supple, no tenderness CHEST : Decreased breath sounds, right chest wall tenderness HEART : Tachycardic, no obvious murmurs ABDOMEN: Some distention, nontender EXTREMITIES : No LE swelling/tenderness, no other conspicuous deformities noted NEUROLOGIC : Coherent, no facial asymmetry, no other gross focality Results & Data Results & Data Vital Signs (Past 12 Hours) Vital Signs Temp Pulse Pulse Resp BP BP Pulse Ox 10/29/22 00:15 105 H 10/29/22 02:51 102 H 20 176/92 H 94 10/29/22 01:06 100 H 22 152/79 H 94 10/29/22 00:14 107 H 26 H 149/98 H 94 10/29/22 00:13 10/29/22 00:12 107 H 26 H 94 10/29/22 00:08 94 10/28/22 23:39 37.9 C H 107 H 30 H 166/89 H 95 O2 Del Method 10/29/22 00:15 10/29/22 02:51 Room Air 10/29/22 01:06 Room Air 10/29/22 00:14 Room Air 10/29/22 00:13 Room Air 10/29/22 00:12 Room Air 10/29/22 00:08 Room Air 10/28/22 23:39 Room Air Laboratory Results Laboratory Results WBC 11.57 K/ul (4.8-10.8) H 10/28/22 23:57 RBC 4.89 M/uL (4.70-6.10) 10/28/22 23:57 Hgb 14.8 g/dl (14.0-18.0) 10/28/22 23:57 POC Hgb 15.6 g/dl (14.0-18.0) 10/29/22 00:03 Hct 42.9 % (42.0-52.0) 10/28/22 23:57 POC Hct 46 % (42-52) 10/29/22 00:03 MCV 87.7 fL (80.0-100.0) 10/28/22 23:57 MCH 30.3 pg (25.0-34.0) 10/28/22 23:57 MCHC 34.5 g/dL (32.0-36.0) 10/28/22 23:57 RDW Std Deviation 40.0 fL (36.4-46.3) 10/28/22 23:57 RDW Coeff of John 12.5 % (11.5-14.5) 10/28/22 23:57 Plt Count 204 K/uL (130-400) 10/28/22 23:57 MPV 9.7 fL (9.4-12.4) 10/28/22 23:57 Immature Gran % (Auto) 0.4 % 10/28/22 23:57 Neut % (Auto) 75.8 % 10/28/22 23:57 Lymph % (Auto) 13.7 % 10/28/22 23:57 Barren % (Auto) 8.0 % 10/28/22 23:57 Eos % (Auto) 1.6 % 10/28/22 23:57 Baso % (Auto) 0.5 % 10/28/22 23:57 Neut # (Auto) 8.77 K/uL (1.40-6.50) H 10/28/22 23:57 Lymph # (Auto) 1.59 K/uL (1.2-3.4) 10/28/22 23:57 Barren # (Auto) 0.92 K/uL (0.11-0.59) H 10/28/22 23:57 Eos # (Auto) 0.18 K/uL (0-0.50) 10/28/22 23:57 Baso # (Auto) 0.06 K/uL (0-0.2) 10/28/22 23:57 Immature Gran # (Auto) 0.05 K/uL (0.01-0.20) 10/28/22 23:57 PT 10.8 Seconds (9.0-12.0) 10/28/22 23:57 INR 1.0 (0.9-1.1) 10/28/22 23:57 APTT 27.8 Seconds (21.0-31.0) 10/28/22 23:57 PTT Ratio 1.0 10/28/22 23:57 VBG pH 7.45 (7.36-7.41) H 10/29/22 01:05 VBG pCO2 39 mmHg (38-50) 10/29/22 01:05 VBG pO2 48 mmHg 10/29/22 01:05 VBG HCO3 27 mmol/L 10/29/22 01:05 VBG O2 Saturation 74.1 % 10/29/22 01:05 VBG Base Excess 3.0 mEq/L 10/29/22 01:05 POC Sodium 137 mmol/L (135-144) 10/29/22 00:03 Sodium 134 mmol/L (136-145) L 10/28/22 23:57 POC Potassium 4.2 mmol/L (3.3-5.0) 10/29/22 00:03 Potassium 4.2 mmol/L (3.5-5.1) 10/28/22 23:57 POC Chloride 102 mmol/L (101-112) 10/29/22 00:03 Chloride 102 mmol/L (98-107) 10/28/22 23:57 Carbon Dioxide 24 mmol/L (21-32) 10/28/22 23:57 POC Total CO2 24 mmol/L (24-31) 10/29/22 00:03 Anion Gap 8 (3-11) 10/28/22 23:57 POC Anion Gap 17.0 mmol/L (16-25) 10/29/22 00:03 POC BUN 13 mg/dl (7-18) 10/29/22 00:03 BUN 15 mg/dl (6-23) 10/28/22 23:57 Creatinine 1.06 mg/dl (0.6-1.4) 10/28/22 23:57 POC Creatinine 1.0 mg/dl (0.6-1.3) 10/29/22 00:03 Est Cr Clr Drug Dosing 103.8 ml/min 10/28/22 23:57 Est GFR ( Amer) 89.9 ml/min 10/28/22 23:57 Est GFR (Non-Af Amer) 77.5 ml/min 10/28/22 23:57 BUN/Creatinine Ratio 14.2 (10-20) 10/28/22 23:57 Glucose 124 mg/dl (70-99(Fasting)) H 10/28/22 23:57 POC Glucose (other) 125 mg/dl (70-99) H 10/29/22 00:03 Lactate 1.1 mmol/L (0.4-2.0) 10/29/22 01:05 Calcium 9.5 mg/dl (8.6-10.3) 10/28/22 23:57 POC Ioniz Calcium Joi 1.13 mmol/l (1.12-1.32) 10/29/22 00:03 Magnesium 2.0 mg/dl (1.7-2.4) 10/28/22 23:57 Total Bilirubin 0.5 mg/dl (0.2-1.0) 10/28/22 23:57 Direct Bilirubin 0.1 mg/dl (0-0.2) 10/28/22 23:57 AST 15 U/L (13-39) 10/28/22 23:57 ALT 16 U/L (7-52) 10/28/22 23:57 Alkaline Phosphatase 93 U/L (34-104) 10/28/22 23:57 Troponin I High Sens 4.8 pg/ml (0-20) 10/28/22 23:57 Total Protein 8.6 gm/dl (6.0-8.3) H 10/28/22 23:57 Albumin 4.5 gm/dl (3.4-5.0) 10/28/22 23:57 Procalcitonin 0.47 ng/ml (0-0.5) 10/28/22 23:57 Urine Color Yellow 10/29/22 02:09 Urine Appearance Clear (Clear) 10/29/22 02:09 Urine pH 6.5 (4.5-7.5) 10/29/22 02:09 Ur Specific [place] 1.037 (1.000-1.030) H 10/29/22 02:09 Urine Protein Negative (Negative) 10/29/22 02:09 Urine Glucose (UA) Negative (Negative) 10/29/22 02:09 Urine Ketones Negative (Negative) 10/29/22 02:09 Urine Blood Negative (Negative) 10/29/22 02:09 Urine Nitrite Negative (Negative) 10/29/22 02:09 Urine Bilirubin Negative (Negative) 10/29/22 02:09 Urine Urobilinogen Negative (Negative) 10/29/22 02:09 Ur Leukocyte Esterase Negative (Negative) 10/29/22 02:09 Adenovirus (PCR) Not Detected (NotDetected) 10/29/22 00:09 B. pertussis DNA (PCR) Not Detected (NotDetected) 10/29/22 00:09 B.parapertussis DNA PCR Not Detected (NotDetected) 10/29/22 00:09 C. pneumoniae DNA (PCR) Not Detected (NotDetected) 10/29/22 00:09 Coronavirus OC43 (PCR) Not Detected (NotDetected) 10/29/22 00:09 Coronavirus HKU1 (PCR) Not Detected (NotDetected) 10/29/22 00:09 Coronavirus 229E (PCR) Not Detected (NotDetected) 10/29/22 00:09 SARS-CoV-2 (PCR) Not Detected (NotDetected) 10/29/22 00:09 Coronavirus NL63 (PCR) Not Detected (NotDetected) 10/29/22 00:09 Human Metapneumovir PCR Not Detected (NotDetected) 10/29/22 00:09 Influenza Type A (PCR) Not Detected (NotDetected) 10/29/22 00:09 Influenza Type B (PCR) Not Detected (NotDetected) 10/29/22 00:09 M. pneumoniae (PCR) Not Detected (NotDetected) 10/29/22 00:09 Parainfluenza 1 (PCR) Not Detected (NotDetected) 10/29/22 00:09 Parainfluenza 2 (PCR) Not Detected (NotDetected) 10/29/22 00:09 Parainfluenza 3 (PCR) Not Detected (NotDetected) 10/29/22 00:09 Parainfluenza 4 (PCR) Not Detected (NotDetected) 10/29/22 00:09 RSV (PCR) Not Detected (NotDetected) 10/29/22 00:09 Entero/Rhino (PCR) Not Detected (NotDetected) 10/29/22 00:09 Impressions Abdomen/Pelvis CT 10/29/22 00:01 Exam(s): CT ABDOMEN + PELVIS With Contrast IV Amt: 115 ML OPTIRAY 320 EXAM: CT Abdomen and Pelvis With Intravenous Contrast CLINICAL HISTORY: Reason for exam: right flank pain. TECHNIQUE: Axial computed tomography images of the abdomen and pelvis with intravenous contrast. CTDI is 28.14 mGy and DLP is 873.63 mGy-cm. Automated exposure control was utilized for the study. A dose lowering technique was utilized adhering to the principles of ALARA. CONTRAST: Patient received 115 ML OPTIRAY 320 of IV contrast COMPARISON: No relevant prior studies available. FINDINGS: Lung bases: Bronchitis with pneumonitis and small consolidation at the right lung base with tiny pleural effusion. ABDOMEN: Liver: Hepatic steatosis. No mass. Gallbladder and bile ducts: Unremarkable. No calcified stones. No ductal dilation. Pancreas: Unremarkable. No mass. No ductal dilation. Spleen: Unremarkable. No splenomegaly. Adrenals: Unremarkable. No mass. Kidneys and ureters: Left renal cyst. No solid mass. No hydronephrosis. Stomach and bowel: Unremarkable. No obstruction. No mucosal thickening. PELVIS: Appendix: No findings to suggest acute appendicitis. Bladder: Unremarkable. No mass. Reproductive: Unremarkable as visualized. ABDOMEN and PELVIS: Intraperitoneal space: Unremarkable. No free air. No significant fluid collection. Bones/joints: Moderate disc degeneration at L1-2, L2-3, L4-5 and L5-S1. No acute fracture. No dislocation. Soft tissues: Unremarkable. Vasculature: Unremarkable. No abdominal aortic aneurysm. Lymph nodes: Unremarkable. No enlarged lymph nodes. IMPRESSION: No evidence of acute intra-abdominal pathology. Bronchitis with pneumonitis and small consolidation at the right lung base with tiny pleural effusion. Electronically signed by: Shena Logan MD 10/29/22 01:33 AM Chest CTA 10/29/22 00:01 CR Exam(s): CTA CHEST IV Amt: 115 ML OPTIRAY 320 EXAM: CT Angiography Chest With Intravenous Contrast CLINICAL HISTORY: Reason for exam: PE. TECHNIQUE: Axial computed tomographic angiography images of the chest with intravenous contrast. CTDI is 27.54 mGy and DLP is 1591.62 mGy-cm. Automated exposure control was utilized for the study. A dose lowering technique was utilized adhering to the principles of ALARA. MIP reconstructed images were created and reviewed. COMPARISON: No relevant prior studies available. FINDINGS: Pulmonary arteries: There is an obstructive pulmonary embolus in the right lower lobe segmental pulmonary artery. Findings concerning for a obstructive pulmonary mass in the left lower lobe subsegmental pulmonary artery. Aorta: No acute findings. No thoracic aortic aneurysm. Lungs: Bronchitis with pneumonitis and small consolidation in the right middle lobe and right lower lobe. No mass. Pleural space: Tiny right pleural effusion. No pneumothorax. Heart: Mild calcified atherosclerotic disease of the coronary arteries.. No cardiomegaly. No significant pericardial effusion. No evidence of RV dysfunction. Bones/joints: No acute fracture. No dislocation. Soft tissues: Hepatic steatosis. Lymph nodes: Prominent mediastinal and hilar lymph nodes. IMPRESSION: Obstructive pulmonary embolus in the right lower lobe segmental pulmonary artery with possible obstructive embolus in the left lower lobe subsegmental pulmonary artery. No evidence of right heart strain. Findings concerning for bronchitis with small consolidations in the right middle lobe and right lower lobe with tiny right pleural effusion. Prominent mediastinal and hilar lymph nodes. Communications: Call Doctor Above results Electronically signed by: Shena Logan MD 10/29/22 01:37 AM Diagnostic Findings EKG as per my interpretation : Rate 105, sinus tachycardia, LAD, LAFB, T wave abnormalities inferior leads (1) Pulmonary embolism Acute cor pulmonale presence: without acute cor pulmonale Chronicity: acute Pulmonary embolism type: unspecified Qualified Code(s): I26.99 - Other pulmonary embolism without acute cor pulmonale
[2022-10-29] MEDS ORDERED: cloNIDine HCL 0.1 MG TAB PO STA (04:02)
[2022-10-29] MEDS ORDERED: LORazepam 0.5 MG TAB PO PRN (04:02)
[2022-10-29] MEDS ORDERED: oxyCODONE HCL IR 5 MG TAB (IMMEDIATE RELEASE) PO PRN (04:02)
[2022-10-29] MEDS ORDERED: PROMETHAZINE HCL 12.5 MG in SODIUM CHLORIDE 0.9% 50 ML IV PRN (04:02)
[2022-10-29] MEDS ORDERED: MoRPHine SULFATE 4 MG/ML 1 ML CARP\\VIAL IV PRN (04:02)
[2022-10-29] MEDS ORDERED: LIDOCAINE 5% 1 PATCH TD STA (04:03)
[2022-10-29] MEDS ORDERED: KETOROLAC TROMETHAMINE 15 MG/ML VIAL IV STA (04:03)
[2022-10-29] MEDS ORDERED: SODIUM CHLORIDE 0.9% 1000ML 1,000 ML IV STA (04:04)
[2022-10-29] MEDS: ACETAMINOPHEN 325 MG TAB PO PRN ×3 (05:51→21:19)
--- NOTE | 2022-10-29 06:36 | Ultrasound Report ---
BILATERAL LOWER EXTREMITY VENOUS DOPPLER CLINICAL HISTORY: pe workup COMPARISON STUDY: No previous studies for comparison. TECHNIQUE: Sonography of the deep venous system of the bilateral lower extremities was performed. Co mpression and augmentation were evaluated. FINDINGS: The bilateral common femoral, superficial femoral and popliteal veins were compressible. A ugmentation was normal. Flow was shown within the deep calf vessels. A small right popliteal cyst ashley sures 3.6 x 0.7 x 2.9 cm. IMPRESSION: No evidence of deep venous thrombus within the bilateral lower extremities. ACT 112: Negative or not required by law. Electronically signed by: Raymundo Gonzalez M.D. 10/29/2022 6:35 AM
--- NOTE | 2022-10-29 06:54 | XRay Report ---
XR chest 1V portable CLINICAL HISTORY: Sepsis. COMPARISON STUDY: No previous studies for comparison. FINDINGS: No pneumothorax. Trace right pleural effusion is present. There is mild right basilar opaci ty. Cardiac size is at the upper limits of normal. Lung lungs are mildly diminished. No evidence for overt pulmonary edema. IMPRESSION: Trace right pleural effusion with mild right basilar opacity. ACT 112: Negative or not required by law. Electronically signed by: Raymundo Gonzalez M.D. 10/29/2022 6:53 AM
[2022-10-29 07:22] LABS: BUN Creatinine Ratio 12.1 (10-20); Calcium 8.4 mg/dl (8.6-10.3); Creatinine Clr Calc Pharmacy 111.1 ml/min; Est GFR (African American) 97.6 ml/min; Est GFR (Non-African American) 84.2 ml/min; Potassium 3.8 mmol/L (3.5-5.1)
[2022-10-29 07:23] LABS: Basophils # (auto) 0.06 K/uL (0-0.2); Basophils % (auto) 0.6 %; Eosinophils # (auto) 0.06 K/uL (0-0.50); Eosinophils % (auto) 0.6 %; Hematocrit (blood only) 37.2 % (42.0-52.0); Hemoglobin 12.8 g/dl (14.0-18.0); Immature Granulocytes # (auto) 0.05 K/uL (0.01-0.20); Immature Granulocytes % (auto) 0.5 %; Lymphocytes # (auto) 1.96 K/uL (1.2-3.4); Lymphocytes % (auto) 18.6 %; Mean Corpuscular Hemoglobin 29.9 pg (25.0-34.0); Mean Corpuscular Hgb Conc 34.4 g/dL (32.0-36.0); Mean Corpuscular Volume 86.9 fL (80.0-100.0); Mean Platelet Volume 9.5 fL (9.4-12.4); Monocytes # (auto) 1.07 K/uL (0.11-0.59); Monocytes % (auto) 10.2 %; Neutrophils # (auto) 7.33 K/uL (1.40-6.50); Neutrophils % (auto) 69.5 %; Platelet Count 172 K/uL (130-400); RDW Coefficient of Variation 12.7 % (11.5-14.5); RDW Standard Deviation 40.5 fL (36.4-46.3); Red Blood Count 4.28 M/uL (4.70-6.10); White Blood Count 10.53 K/ul (4.8-10.8)
[2022-10-29] MEDS: LOSARTAN POTASSIUM 50 MG TAB PO SCH (08:17)
[2022-10-29 11:10] LABS: Partial Thromboplastin Ratio 1.4
[2022-10-29 11:13] LABS: Partial Thromboplastin Time 40.3 Seconds (21.0-31.0)
--- NOTE | 2022-10-29 12:24 | Electrocardiogram Report ---
Test Reason : Blood Pressure : / mmHG Vent. Rate : 103 BPM Atrial Rate : 103 BPM P-R Int : 164 ms QRS Dur : 096 ms QT Int : 328 ms P-R-T Axes : 031 -20 027 degrees QTc Int : 429 ms Sinus tachycardia Otherwise normal ECG No previous ECGs available Confirmed by Malik Post ([id number]) on 10/29/2022 12:24:12 PM Referred By: REFERRED SELF Confirmed By:Malik Post
--- NOTE | 2022-10-29 15:43 | Communication Note ---
Date of Service: October 29, 2022 57-year-old male with PMH of HTN, chronic back pain, prediabetes presented to the hospital 10/29 with complaint of right lower lateral chest pain with deep b reathing and associated shortness of breath. No cough or abdominal pain. Fever and chills present. Increased weakness. 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 Also has multiple family members with history of blood clots. Admitting CTA chest with PE with no right heart strain, BLE Doppler negative for DVT. Patient started on heparin drip, will continue same, patient agreeable for Eliquis after discussing options for oral blood thinner. Sent Eliquis for cost eval. CM aware. Patient will need follow-up with hematology in 2 months time upon discharge. Sepsis POA and community-acquired pneumonia: Admitting CT chest with RML and RLL pneumonia. Patient started on doxycycline, temperature and WBC getting better, patient reports feeling better. We will continue with doxycycline for now. Other chronic medical conditions: HTN, prediabetes -----continue with/resume home meds as able. DVT prophylaxis: Patient on IV heparin drip for acute PE Full code Dispo: Likely DC tomorrow. On exam, patient on room air, NAD, heart/lung/abdomen exam fairly WNL. For detail information on the patient, refer to today's H&P note.
[2022-10-29] MEDS: DOXYCYCLINE HYCLATE 100 MG CAP PO SCH (20:57)
[2022-10-30 06:22] LABS: Hematocrit (blood only) 40.2 % (42.0-52.0); Hemoglobin 13.5 g/dl (14.0-18.0); Mean Corpuscular Hemoglobin 29.6 pg (25.0-34.0); Mean Corpuscular Hgb Conc 33.6 g/dL (32.0-36.0); Mean Corpuscular Volume 88.2 fL (80.0-100.0); Mean Platelet Volume 9.7 fL (9.4-12.4); Platelet Count 192 K/uL (130-400); RDW Coefficient of Variation 12.7 % (11.5-14.5); RDW Standard Deviation 41.2 fL (36.4-46.3); Red Blood Count 4.56 M/uL (4.70-6.10); White Blood Count 7.32 K/ul (4.8-10.8)
[2022-10-30 06:55] LABS: BUN Creatinine Ratio 11.2 (10-20); Calcium 9.1 mg/dl (8.6-10.3); Creatinine Clr Calc Pharmacy 111.1 ml/min; Est GFR (African American) 98.8 ml/min; Est GFR (Non-African American) 85.2 ml/min; Magnesium 2.2 mg/dl (1.7-2.4); Phosphorus 2.3 mg/dl (2.5-4.9); Potassium 4.2 mmol/L (3.5-5.1)
[2022-10-30 07:01] LABS: Partial Thromboplastin Ratio 1.6
[2022-10-30] MEDS: HEPARIN SODIUM/DEXTROSE 25,000 UNITS/500 ML BAG IV SCH (07:01)
[2022-10-30 07:34] LABS: Partial Thromboplastin Time 43.9 Seconds (21.0-31.0)
[2022-10-30] MEDS: DOXYCYCLINE HYCLATE 100 MG CAP PO SCH (08:14)
[2022-10-30] MEDS: LOSARTAN POTASSIUM 50 MG TAB PO SCH (08:14)
[2022-10-30] MEDS ORDERED: LIDOCAINE 5% 1 PATCH TD SCH (09:00)
[2022-10-30] MEDS: POT PHOSPHATE MONOBASIC W/ SOD TAB PO SCH ×2 (09:46→14:05)
[2022-10-30] MEDS ORDERED: APIXABAN 5 MG TABLET PO SCH (11:25)
--- NOTE | 2022-10-30 13:50 | Discharge Summary ---
Date of Service October 30, 2022 Admission HPI Per Admitting Provider History obtained from patient and records. Medical history significant for hypertension, chronic back pain, prediabetes. Patient underwent outpatient follow-up colonoscopy 4 days ago. Unremarkable postprocedure course. Yesterday, patient noted achy right flank pain with shortness of breath symptoms. No cough, no abdominal pain. Fever and chills. Increased weakness. Zosyn administered at the ER for sepsis. IV heparin initiated for pulmonary embolism on CT imaging. No prior history of blood clots. Multiple family members with blood clot history. 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 Admission Exam Per Admitting Provider GENERAL: Slightly uncomfortable, pleasant, obese, no respiratory distress SKIN: Normal color, warm HEENT: Rote palpebral conjunctivae, no ptosis, dry buccal mucosa NECK : Supple, no tenderness CHEST : Decreased breath sounds, right chest wall tenderness HEART : Tachycardic, no obvious murmurs ABDOMEN: Some distention, nontender EXTREMITIES : No LE swelling/tenderness, no other conspicuous deformities noted NEUROLOGIC : Coherent, no facial asymmetry, no other gross focality Principal Diagnosis Pulmonary embolism Sepsis POA Committee acquired pneumonia Hypertension Discharge Exam GENERAL: Alert and oriented x3. NAD, on RA. Obese Class I HEENT: No pallor, no icterus. Pupils equal, round and reactive to light. Oral mucosa moist. NECK: No JVD, no neck masses. HEART: S1 and S2 heard. Regular rate and rhythm. No murmur, no gallop. RESPIRATORY SYSTEM: Normal AP diameter. No accessory muscle use. No wheezing, no crackles. ABDOMEN: Soft, bowel sounds present, nontender, no distention. CENTRAL NERVOUS SYSTEM: No facial droop. Speech is clear. Obeys simple commands. Moves extremities. EXTREMITIES: No edema, no erythema seen. Discharge Data Allergies Allergy/AdvReac Type Severity Reaction Status Date / Time No Known Allergies Allergy Verified 10/29/22 00:19 Consultations 10/29/22 01:41 ED Decision to Admit Stat Ordered Studies 10/29/22 00:01 CT abd pelvis IV con only Stat CT angio chest PE protocol Stat 10/29/22 04:08 US venous doppler LE BI Routine Hospital Course (1) Pulmonary embolism: Plan 57-year-old male with PMH of HTN, chronic back pain, prediabetes presented to the hospital 10/29 with complaint of right lower lateral chest pain with deep breathing and associated shortness of breath. No cough or abdominal pain. Fever and chills present. Increased weakness. He was managed for the following: Pulmonary embolism:His work involves him being stationary for prolonged hours with minimal break in between. Also has multiple family members with history of blood clots. Admitting CTA chest with PE with no right heart strain, BLE Doppler negative for DVT. Patient started on heparin drip, transitioned to eliquis today (10 mg bid x 7 days f/b 5 mg bid).Patient will need follow-up with hematology in 2 months time upon discharge. Pt on room air and hemodynamically stable, and would like to go home. Sepsis POA and community-acquired pneumonia:Admitting CT chest with RML and RLL pneumonia. Patient started on doxycycline, temperature and WBC got better, patient reports feeling better. We will continue with doxycycline for now. Complete the course on discharge. Other chronic medical conditions:HTN, prediabetes -----continue with/resume home meds as able. DVT prophylaxis: Patient on IV heparin drip for acute PE, transition to Eliquis today. Full code Patient being discharged home with following instruction at the point of discharge: Follow-up with your primary care physician within a week time and likely you will need labs CBC/CMP/magnesium/phosphorus. You were found to have blood clot in the lungs, you are started on Eliquis. Take 10 mg Eliquis twice a day from the morning of 10/30/2022 for 7 days then 5 mg twice a day thereafter. You will need follow-up with hematology as an outpatient in 2 months upon discharge. For your pneumonia, you will be discharged on antibiotic, complete the course. Please make sure that you are able to get your medications today by calling your pharmacy before you leave the hospital so that your treatment continuity is not broken. [facility] Attestation I certify that this patient is under my care and that I, or a physicians collections assistant working with me, had a face to-face encounter that meets the person [id number] encounter requirements with this patient. The encounter with the patient was in whole, or in part, for the following medical condition, which is the primary reason for home health care (list medical condition): I certify that, based on my findings, the following services are medically necessary home health services: My clinical findings support the need for the above services because: Further, I certify that my clinical findings support that this patient is homebound (i.e. absences from home require considerable and taxing effort and are for medical reasons or [facility] or infrequently or of short duration when for other reasons) because: Certification for Home Health Services: Based on the above findings, I certify that this patient is confined to the home and needs intermittent [facility] care, physical therapy and/or speech therapy or continues to need occupational therapy. The patient is under my care, and I have initiated the establishment of the plan of care. This patient will be followed by a physician who will periodically review the plan of care. Total Time Total Time Spent Total Time Spent (In Minutes): 45 Discharge Plan Discharge Items Patient Disposition: Home - Self-Care Reason For Visit: PE Discharge Diagnosis: Pulmonary embolism Sepsis POA Committee acquired pneumonia Hypertension Condition on Discharge: Fair Activity: Resume your previous activity Non-emergency contact: Primary Care Provider Call non-emergency contact if: you have any medication questions, your symptoms worsen and your temperature is above 101 Follow-up/Referrals: Darlene Barriga MD [Primary Care Provider] - Diet: Heart Healthy Addtl Attending Provider Instructions: Follow-up with your primary care physician within a week time and likely you will need labs CBC/CMP/magnesium/phosphorus. You were found to have blood clot in the lungs, you are started on Eliquis. Take 10 mg Eliquis twice a day from the morning of 10/30/2022 for 7 days then 5 mg twice a day thereafter. You will need follow-up with hematology as an outpatient in 2 months upon discharge. For your pneumonia, you will be discharged on antibiotic, complete the course. Please make sure that you are able to get your medications today by calling your pharmacy before you leave the hospital so that your treatment continuity is not broken. Pending Studies at Discharge: Yes Stand-Alone Forms: [employer], Smoking Cessation Medications and DC Order Prescriptions: New Eliquis 5 mg tablet 5 mg PO UD Qty: 74 0RF Rx Instructions: 2 tabs twice a day for 7 days followed by 1 tab twice a day. doxycycline hyclate 100 mg Capsule 100 mg PO BID 6 Days Qty: 12 0RF Continued acetaminophen [Tylenol Extra Strength] 500 mg Tablet 1,000 mg PO DIRECTED PRN (Reason: Pain) losartan 100 mg Tablet 100 mg PO DAILY hydrochlorothiazide 12.5 mg Tablet 12.5 mg PO DAILY Discharge Orders: Discharge Order (Routine); Ordered 10/30/22 Ordered By: Chad Parikh Admission Data Admit Date/Time: 10/29/22 04:00 Attending Provider: Chad Parikh Admit Provider: Ash Watts Primary Care Provider: Darlene Barriga Other Providers: Ash Watts
[2022-10-30] MEDS ORDERED: amLODIPine BESYLATE 5 MG TAB PO SCH (21:00)
== END 2022-10-30 16:07 | disposition home or self-care (01) | DRG 871 ==
LOC: ED 23:34 → 2W 10-29 04:00